=== PATIENT | female | born 1930 | race Caucasian/White ===

== ENCOUNTER 2018-02-11 12:03 | Inpatient (IN) | payer MEDICARE, OTHER, MEDICAID ==
[2018-02-11 12:57] LABS: ADD MAN DIFF? NO
[2018-02-11 13:01] LABS: WHITE BLOOD COUNT 10.4 10^3/ul (4.8-10.8)
[2018-02-11 13:01] LABS: BASOPHIL # 0.1 10^3/ul (0.0-0.1); BASOPHILS % 0.6 % (0.0-2.0); EOSINOPHILS % 0.4 % (0.0-7.0); HEMATOCRIT 34.4 % (37.0-47.0); HEMOGLOBIN 10.9 g/dl (12.0-16.0); LYMPHOCYTES # 3.7 10^3/ul (0.8-2.9); MEAN CORPUSCULAR HEMOGLOBIN 28.8 pg (29.0-33.0); MEAN CORPUSCULAR HGB CONC 31.7 g/dl (32.0-37.0); MEAN CORPUSCULAR VOLUME 90.8 fl (82.0-101.0); MEAN PLATELET VOLUME 10.4 fl (7.4-10.4); MONOCYTE # 0.7 10^3/ul (0.3-0.9); NEUTROPHIL # 5.7 10^3/ul (1.6-7.5); NEUTROPHILS % 55.4 % (39.0-77.0); PLATELET COUNT 333 10^3/UL (140-415); RED BLOOD COUNT 3.79 10^6/ul (4.20-5.40); RED CELL DISTRIBUTION WIDTH 15.7 % (11.5-14.5)
[2018-02-11 13:14] LABS: INR 1.25; PARTIAL THROMBOPLASTIN TIME 30.3 Sec (25.0-35.0); PROTIME 15.9 Sec (11.9-14.9); PT RATIO 1.2
[2018-02-11] MEDS: SOD CHLORIDE 0.9% 1,000 ML IV ×2 (14:00→19:07)
[2018-02-11] MEDS: LIDOCAINE 1% (MPF) 5 ML VIAL SC (14:05)
[2018-02-11 14:12] LABS: ALANINE AMINOTRANSFERASE 26 IU/L (13-69); ALBUMIN 2.5 g/dl (3.3-4.9); ALBUMIN/GLOBULIN RATIO 0.83; ALKALINE PHOSPHATASE 94 IU/L (42-121); ANION GAP 16 (8-16); ASPARTATE AMINO TRANSFERASE 28 IU/L (15-46); BILIRUBIN,INDIRECT 0.4 mg/dl (0-1.1); BILIRUBIN,TOTAL 0.4 mg/dl (0.2-1.3); BLOOD UREA NITROGEN 31 mg/dl (7-20); CARBON DIOXIDE 19 mmol/L (21-31); CHLORIDE 109 mmol/L (97-110); CREATININE 1.24 mg/dl (0.44-1.00); GLUCOSE 78 mg/dl (70-220); POTASSIUM 3.7 mmol/L (3.5-5.1); SODIUM 140 mmol/L (135-144); TOTAL PROTEIN 5.5 g/dl (6.1-8.1)
[2018-02-11 14:17] LABS: LACTIC ACID 1.3 mmol/L (0.5-2.0); PHOSPHORUS 5.6 mg/dl (2.5-4.9)
[2018-02-11 14:17] LABS: MAGNESIUM 2.1 mg/dl (1.7-2.5)
[2018-02-11 14:23] LABS: TROPONIN-I 0.018 ng/ml (0.00-0.12)
[2018-02-11 14:49] LABS: AADO2 Arterial 220.5 mmHg (7.0-24.0); Allen Test ACCEPTAB; Arterial Base Excess -2.7 mmol/L (-3.0-3); Arterial Blood Gas Oxygen Sat 96.7 mmHG (95.0-100.0); Arterial COHb 0.5 % (0.0-3.0); Arterial HCO3 21.6 mmol/L (22.0-26.0); Arterial MetHb 0.2 % (0.0-1.5); Arterial Total Hemglobin 11.4 g/dl (12.0-18.0); Arterial pCO2 35.7 mmhg (35-45); MODE HFNC; Site Left Radial
[2018-02-11] MEDS: HEPARIN 1000 UNITS/ML 10 ML INJ IV (15:30)
[2018-02-11 15:31] LABS: ADD UMIC NO; UR ASCORBIC ACID NEGATIVE (NEGATIVE); UR BILIRUBIN (Dip) NEGATIVE (NEGATIVE); UR BLOOD (Dip) NEGATIVE (NEGATIVE); UR CLARITY CLEAR (CLEAR); UR COLOR AMBER (YELLOW); UR GLUCOSE (Dip) NEGATIVE (NEGATIVE); UR KETONES (Dip) NEGATIVE (NEGATIVE); UR LEUKOCYTE ESTERASE (Dip) NEGATIVE Leu/ul (NEGATIVE); UR NITRITE (Dip) NEGATIVE (NEGATIVE); UR SPECIFIC GRAVITY (Dip) 1.019 (1.003-1.030); UR TOTAL PROTEIN (Dip) NEGATIVE (NEGATIVE); UR UROBILINOGEN (Dip) 2+ mg/dL (NEGATIVE)
[2018-02-11] MEDS: HEPARIN 25000 UNITS/D5W 250 ML (VPH) IV (15:40)
[2018-02-11] MEDS ORDERED: HYDROCODONE/APAP (5/325) TAB PO (18:00)
[2018-02-11] MEDS ORDERED: ZOLPIDEM 5 MG TAB PO (18:00)
[2018-02-11] MEDS ORDERED: ALPRAZOLAM 0.25 MG TAB PO (18:00)
[2018-02-11] MEDS ORDERED: morphine 2 MG INJ IV (18:00)
[2018-02-11] MEDS ORDERED: NACL 0.9% 3 ML SYG IV (18:00)
[2018-02-11] MEDS ORDERED: NAPROXEN 500 MG TAB PO (18:00)
[2018-02-11] MEDS ORDERED: DOCUSATE SODIUM 100 MG CAP PO (18:00)
[2018-02-11] MEDS: SOD CHLORIDE 0.9% 500 ML IV (18:00)
[2018-02-11] MEDS: NORepinephrine 8MG/250 ML (PMX 250 ML IV (19:16)
[2018-02-11 19:49] LABS: LACTIC ACID 0.9 mmol/L (0.5-2.0)
[2018-02-11] MEDS: ATORVASTATIN 40 MG TAB PO (21:48)
[2018-02-11] MEDS: MONTELUKAST 10 MG TAB PO (21:48)
[2018-02-11] MEDS: BENZTROPINE 1 MG TAB PO (21:48)
[2018-02-11 22:57] LABS: LACTIC ACID 1.2 mmol/L (0.5-2.0)
[2018-02-12 00:40] LABS: PARTIAL THROMBOPLASTIN TIME > 180.0 Sec (25.0-35.0)
[2018-02-12 04:48] LABS: PARTIAL THROMBOPLASTIN TIME 88.1 Sec (25.0-35.0)
[2018-02-12 05:36] LABS: ADD MAN DIFF? NO
[2018-02-12 05:39] LABS: BASOPHIL # 0.1 10^3/ul (0.0-0.1); EOSINOPHILS # 0.1 10^3/ul (0.0-0.5); EOSINOPHILS % 0.6 % (0.0-7.0); HEMATOCRIT 33.6 % (37.0-47.0); HEMOGLOBIN 10.3 g/dl (12.0-16.0); LYMPHOCYTES # 3.5 10^3/ul (0.8-2.9); LYMPHOCYTES % 34.1 % (15.0-51.0); MEAN CORPUSCULAR HEMOGLOBIN 28.8 pg (29.0-33.0); MEAN CORPUSCULAR HGB CONC 30.7 g/dl (32.0-37.0); MEAN CORPUSCULAR VOLUME 93.9 fl (82.0-101.0); MEAN PLATELET VOLUME 10.1 fl (7.4-10.4); MONOCYTE # 0.8 10^3/ul (0.3-0.9); MONOCYTES % 8.2 % (0.0-11.0); NEUTROPHIL # 5.7 10^3/ul (1.6-7.5); NEUTROPHILS % 55.3 % (39.0-77.0); PLATELET COUNT 362 10^3/UL (140-415); RED BLOOD COUNT 3.58 10^6/ul (4.20-5.40); RED CELL DISTRIBUTION WIDTH 15.5 % (11.5-14.5)
[2018-02-12 05:39] LABS: WHITE BLOOD COUNT 10.2 10^3/ul (4.8-10.8)
[2018-02-12 06:04] LABS: ANION GAP 14 (8-16); BLOOD UREA NITROGEN 31 mg/dl (7-20); CALCIUM 7.5 mg/dl (8.4-10.2); CARBON DIOXIDE 20 mmol/L (21-31); CHLORIDE 111 mmol/L (97-110); CHOL/HDL RATIO 5.5 RATIO; CHOLESTEROL 116 mg/dl (100-200); CREATININE 1.19 mg/dl (0.44-1.00); GLUCOSE 143 mg/dl (70-220); HDL CHOLESTEROL 21 mg/dl (33-92); LDL CHOLESTEROL,CALCULATED 70 mg/dl; MAGNESIUM 2.1 mg/dl (1.7-2.5); PHOSPHORUS 5.9 mg/dl (2.5-4.9); POTASSIUM 3.6 mmol/L (3.5-5.1); SODIUM 141 mmol/L (135-144); TRIGLYCERIDES 126 mg/dl (0-149)
[2018-02-12 06:13] LABS: B-TYPE NATRIURETIC PEPTIDE 18900 PG/ML (0-450)
[2018-02-12 06:17] LABS: PARTIAL THROMBOPLASTIN TIME > 180.0 Sec (25.0-35.0)
[2018-02-12 06:57] LABS: FREE THYROXINE INDEX (Calc) 3.51 ug/ml (0.65-3.89); T3 UPTAKE 43.3 % (23.5-40.5); T4 (THYROXINE) 8.1 ug/dl (5.5-11.0)
[2018-02-12 07:58] LABS: IRON 32 ug/dl (35-150)
[2018-02-12 08:07] LABS: % IRON SATURATION 15 % SAT (22-52); TOTAL IRON BINDING CAPACITY 217 ug/dl (241-421)
[2018-02-12 08:08] LABS: PARTIAL THROMBOPLASTIN TIME 38.2 Sec (25.0-35.0)
[2018-02-12 08:11] LABS: FOLATE 6.2 ng/ml (2.8-20.0)
[2018-02-12] MEDS: PANTOPRAZOLE (EC) 40 MG TAB PO (08:39)
[2018-02-12] MEDS: LEVOTHYROXINE 112 MCG TAB PO (08:39)
[2018-02-12] MEDS: ARIPIPRAZOLE 2 MG TAB PO (08:39)
[2018-02-12] MEDS: BENZTROPINE 1 MG TAB PO ×2 (08:40→23:30)
[2018-02-12] MEDS: POTASSIUM CHLORIDE (SR) 20 MEQ TAB PO (08:40)
[2018-02-12] MEDS: ESCITALOPRAM 10 MG TAB PO (08:41)
[2018-02-12] MEDS: ALLOPURINOL 100 MG TAB PO (09:16)
[2018-02-12] MEDS: ANASTROZOLE 1 MG TAB PO (09:50)
[2018-02-12 11:50] LABS: PARTIAL THROMBOPLASTIN TIME 42.8 Sec (25.0-35.0)
[2018-02-12] MEDS: HEPARIN 1000 UNITS/ML 10 ML INJ IV (12:41)
[2018-02-12] MEDS: SOD CHLORIDE 0.9% 1,000 ML IV (13:43)
[2018-02-12 20:33] LABS: PARTIAL THROMBOPLASTIN TIME > 180.0 Sec (25.0-35.0)
[2018-02-12] MEDS: IOHEXOL 100 ML (20:52)
[2018-02-12] MEDS: SOD CHLORIDE 0.9% 100 ML (20:52)
[2018-02-12] MEDS ORDERED: HEPARIN 1000 UNITS/ML 10 ML INJ IV ×4 (21:30→22:00)
[2018-02-12] MEDS: ALBUTEROL/IPRATROPIUM (NEB) 3 ML AMP HHN (21:31)
[2018-02-12] MEDS: MONTELUKAST 10 MG TAB PO (22:28)
[2018-02-12] MEDS: ATORVASTATIN 40 MG TAB PO (22:28)
[2018-02-12 23:45] LABS: PARTIAL THROMBOPLASTIN TIME 97.1 Sec (25.0-35.0)
[2018-02-12] MEDS: HEPARIN 25000 UNITS/250 ML 250 ML IV (23:53)
[2018-02-12 23:59] LABS: CREATININE,URINE RANDOM 94.53 mg/dl (20-320)
[2018-02-13 00:06] LABS: SODIUM,URINE RANDOM < 5 mmol/L (30-90)
[2018-02-13 00:27] LABS: ADD UMIC YES; UR ASCORBIC ACID NEGATIVE (NEGATIVE); UR BACTERIA FEW /HPF (NONE SEEN); UR BILIRUBIN (Dip) NEGATIVE (NEGATIVE); UR BLOOD (Dip) 2+ mg/dL (NEGATIVE); UR CLARITY SLIGHTLY CLOUDY (CLEAR); UR COLOR YELLOW (YELLOW); UR GLUCOSE (Dip) NEGATIVE (NEGATIVE); UR KETONES (Dip) NEGATIVE (NEGATIVE); UR LEUKOCYTE ESTERASE (Dip) TRACE Leu/ul (NEGATIVE); UR MUCUS FEW /HPF (NONE SEEN); UR NITRITE (Dip) NEGATIVE (NEGATIVE); UR RBC > 182 /HPF (0-5); UR SPECIFIC GRAVITY (Dip) > 1.060 (1.003-1.030); UR SQUAMOUS EPITHELIAL CELL FEW /HPF (FEW); UR TOTAL PROTEIN (Dip) 1+ mg/dl (NEGATIVE); UR UROBILINOGEN (Dip) 1+ mg/dL (NEGATIVE); UR WBC 13 /HPF (0-5)
[2018-02-13] MEDS: LEVOTHYROXINE 112 MCG TAB PO (06:25)
[2018-02-13] MEDS: PANTOPRAZOLE (EC) 40 MG TAB PO (06:25)
[2018-02-13 07:14] LABS: ADD MAN DIFF? NO
[2018-02-13 07:18] LABS: BASOPHILS % 0.3 % (0.0-2.0); EOSINOPHILS # 0.1 10^3/ul (0.0-0.5); EOSINOPHILS % 0.8 % (0.0-7.0); HEMATOCRIT 31.2 % (37.0-47.0); HEMOGLOBIN 9.7 g/dl (12.0-16.0); LYMPHOCYTES # 2.2 10^3/ul (0.8-2.9); LYMPHOCYTES % 28.5 % (15.0-51.0); MEAN CORPUSCULAR HEMOGLOBIN 28.6 pg (29.0-33.0); MEAN CORPUSCULAR HGB CONC 31.1 g/dl (32.0-37.0); MEAN PLATELET VOLUME 9.7 fl (7.4-10.4); MONOCYTE # 0.6 10^3/ul (0.3-0.9); NEUTROPHIL # 4.7 10^3/ul (1.6-7.5); NEUTROPHILS % 62.1 % (39.0-77.0); PLATELET COUNT 262 10^3/UL (140-415); RED BLOOD COUNT 3.39 10^6/ul (4.20-5.40); RED CELL DISTRIBUTION WIDTH 15.5 % (11.5-14.5)
[2018-02-13 07:18] LABS: WHITE BLOOD COUNT 7.5 10^3/ul (4.8-10.8)
[2018-02-13 07:45] LABS: PARTIAL THROMBOPLASTIN TIME 97.1 Sec (25.0-35.0)
[2018-02-13 07:50] LABS: ANION GAP 13 (8-16); BLOOD UREA NITROGEN 28 mg/dl (7-20); CALCIUM 7.3 mg/dl (8.4-10.2); CARBON DIOXIDE 19 mmol/L (21-31); CHLORIDE 112 mmol/L (97-110); CREATININE 1.04 mg/dl (0.44-1.00); GLUCOSE 98 mg/dl (70-220); MAGNESIUM 2.2 mg/dl (1.7-2.5); POTASSIUM 3.7 mmol/L (3.5-5.1); SODIUM 140 mmol/L (135-144)
[2018-02-13 07:51] LABS: CHOLESTEROL 112 mg/dl (100-200)
[2018-02-13 07:51] LABS: HDL CHOLESTEROL 22 mg/dl (33-92); LDL CHOLESTEROL,CALCULATED 65 mg/dl; TRIGLYCERIDES 123 mg/dl (0-149)
[2018-02-13] MEDS: ALLOPURINOL 100 MG TAB PO (08:25)
[2018-02-13] MEDS: ESCITALOPRAM 10 MG TAB PO (08:25)
[2018-02-13] MEDS: BENZTROPINE 1 MG TAB PO ×2 (08:25→21:16)
[2018-02-13] MEDS: ARIPIPRAZOLE 2 MG TAB PO (08:25)
[2018-02-13] MEDS: SOD CHLORIDE 0.9% 1,000 ML IV (08:25)
[2018-02-13] MEDS: POTASSIUM CHLORIDE (SR) 20 MEQ TAB PO (08:25)
[2018-02-13] MEDS: ANASTROZOLE 1 MG TAB PO (08:27)
[2018-02-13 16:25] LABS: PARTIAL THROMBOPLASTIN TIME 78.3 Sec (25.0-35.0)
[2018-02-13 18:34] LABS: TROPONIN-I < 0.012 ng/ml (0.00-0.12)
[2018-02-13] MEDS: MONTELUKAST 10 MG TAB PO (21:16)
[2018-02-13] MEDS: ATORVASTATIN 40 MG TAB PO (21:16)
[2018-02-13] MEDS: HEPARIN 25000 UNITS/250 ML 250 ML IV (23:35)
[2018-02-14 02:18] LABS: TROPONIN-I < 0.012 ng/ml (0.00-0.12)
[2018-02-14] MEDS: SOD CHLORIDE 0.9% 1,000 ML IV (03:28)
[2018-02-14] MEDS: PANTOPRAZOLE (EC) 40 MG TAB PO (06:53)
[2018-02-14] MEDS: LEVOTHYROXINE 112 MCG TAB PO (06:53)
[2018-02-14] MEDS: BENZTROPINE 1 MG TAB PO ×3 (09:00→20:36)
[2018-02-14] MEDS: ANASTROZOLE 1 MG TAB PO ×2 (09:00→17:08)
[2018-02-14] MEDS: ALLOPURINOL 100 MG TAB PO ×2 (09:00→17:07)
[2018-02-14] MEDS: POTASSIUM CHLORIDE (SR) 20 MEQ TAB PO ×2 (09:00→17:09)
[2018-02-14] MEDS: ARIPIPRAZOLE 2 MG TAB PO ×2 (09:00→17:06)
[2018-02-14] MEDS: ESCITALOPRAM 10 MG TAB PO ×2 (09:00)
[2018-02-14 09:19] LABS: ADD MAN DIFF? NO
[2018-02-14 09:22] LABS: BASOPHILS % 0.3 % (0.0-2.0); EOSINOPHILS # 0.1 10^3/ul (0.0-0.5); EOSINOPHILS % 1.2 % (0.0-7.0); HEMATOCRIT 31.8 % (37.0-47.0); HEMOGLOBIN 9.8 g/dl (12.0-16.0); LYMPHOCYTES % 30.8 % (15.0-51.0); MEAN CORPUSCULAR HEMOGLOBIN 28.7 pg (29.0-33.0); MEAN CORPUSCULAR HGB CONC 30.8 g/dl (32.0-37.0); MEAN PLATELET VOLUME 10.2 fl (7.4-10.4); MONOCYTE # 0.5 10^3/ul (0.3-0.9); MONOCYTES % 8.3 % (0.0-11.0); NEUTROPHIL # 3.9 10^3/ul (1.6-7.5); NEUTROPHILS % 59.1 % (39.0-77.0); PLATELET COUNT 288 10^3/UL (140-415); RED BLOOD COUNT 3.42 10^6/ul (4.20-5.40); RED CELL DISTRIBUTION WIDTH 15.7 % (11.5-14.5)
[2018-02-14 09:22] LABS: WHITE BLOOD COUNT 6.5 10^3/ul (4.8-10.8)
[2018-02-14 09:46] LABS: ANION GAP 10 (8-16); BLOOD UREA NITROGEN 26 mg/dl (7-20); CALCIUM 7.3 mg/dl (8.4-10.2); CARBON DIOXIDE 20 mmol/L (21-31); CHLORIDE 114 mmol/L (97-110); CREATININE 0.95 mg/dl (0.44-1.00); GLUCOSE 91 mg/dl (70-220); MAGNESIUM 2.2 mg/dl (1.7-2.5); PHOSPHORUS 3.1 mg/dl (2.5-4.9); POTASSIUM 3.7 mmol/L (3.5-5.1); SODIUM 140 mmol/L (135-144)
[2018-02-14 09:51] LABS: PARTIAL THROMBOPLASTIN TIME 91.1 Sec (25.0-35.0)
[2018-02-14 12:53] LABS: CREATININE, RANDOM URINE 103 mg/dL (20-320); MICROALBUMIN 5.2 mg/dL; MICROALBUMIN/CREATININE RATIO 50 (<30)
[2018-02-14] MEDS: ATORVASTATIN 40 MG TAB PO (20:36)
[2018-02-14] MEDS: MONTELUKAST 10 MG TAB PO (20:36)
[2018-02-15] MEDS: HEPARIN 25000 UNITS/250 ML 250 ML IV ×2 (00:24→18:56)
[2018-02-15] MEDS: LEVOTHYROXINE 112 MCG TAB PO (06:32)
[2018-02-15] MEDS: PANTOPRAZOLE (EC) 40 MG TAB PO (06:32)
[2018-02-15 06:48] LABS: ADD MAN DIFF? NO
[2018-02-15 07:04] LABS: PARTIAL THROMBOPLASTIN TIME 36.9 Sec (25.0-35.0)
[2018-02-15 07:20] LABS: ANION GAP 9 (8-16); BLOOD UREA NITROGEN 24 mg/dl (7-20); CARBON DIOXIDE 20 mmol/L (21-31); CHLORIDE 115 mmol/L (97-110); CREATININE 0.86 mg/dl (0.44-1.00); GLUCOSE 105 mg/dl (70-220); SODIUM 140 mmol/L (135-144)
[2018-02-15 07:21] LABS: CALCIUM 7.6 mg/dl (8.4-10.2)
[2018-02-15] MEDS: ALTEPLASE (CATHFLO) 2 MG INJ CATHETER (08:38)
[2018-02-15] MEDS: POTASSIUM CHLORIDE (SR) 20 MEQ TAB PO (08:39)
[2018-02-15] MEDS: ESCITALOPRAM 10 MG TAB PO (08:39)
[2018-02-15] MEDS: ARIPIPRAZOLE 2 MG TAB PO (08:40)
[2018-02-15] MEDS: ALLOPURINOL 100 MG TAB PO (08:41)
[2018-02-15] MEDS: BENZTROPINE 1 MG TAB PO ×2 (08:41→20:30)
[2018-02-15] MEDS: ANASTROZOLE 1 MG TAB PO (08:48)
[2018-02-15 09:24] LABS: BASOPHILS % 0.4 % (0.0-2.0); EOSINOPHILS # 0.1 10^3/ul (0.0-0.5); EOSINOPHILS % 1.2 % (0.0-7.0); HEMATOCRIT 32.6 % (37.0-47.0); LYMPHOCYTES # 1.9 10^3/ul (0.8-2.9); MEAN CORPUSCULAR HEMOGLOBIN 28.2 pg (29.0-33.0); MEAN CORPUSCULAR HGB CONC 30.7 g/dl (32.0-37.0); MEAN CORPUSCULAR VOLUME 92.1 fl (82.0-101.0); MEAN PLATELET VOLUME 10.9 fl (7.4-10.4); MONOCYTE # 0.5 10^3/ul (0.3-0.9); MONOCYTES % 8.5 % (0.0-11.0); NEUTROPHIL # 3.2 10^3/ul (1.6-7.5); NEUTROPHILS % 55.5 % (39.0-77.0); PLATELET COUNT 223 10^3/UL (140-415); RED BLOOD COUNT 3.54 10^6/ul (4.20-5.40); RED CELL DISTRIBUTION WIDTH 15.4 % (11.5-14.5)
[2018-02-15 09:24] LABS: WHITE BLOOD COUNT 5.7 10^3/ul (4.8-10.8)
[2018-02-15 11:03] LABS: PARTIAL THROMBOPLASTIN TIME 73.6 Sec (25.0-35.0)
[2018-02-15] MEDS: MONTELUKAST 10 MG TAB PO (20:30)
[2018-02-15] MEDS: ATORVASTATIN 40 MG TAB PO (20:30)
[2018-02-16] MEDS: PANTOPRAZOLE (EC) 40 MG TAB PO (06:42)
[2018-02-16] MEDS: LEVOTHYROXINE 112 MCG TAB PO (06:42)
[2018-02-16 07:08] LABS: PARTIAL THROMBOPLASTIN TIME 97.2 Sec (25.0-35.0)
[2018-02-16 07:13] LABS: ANION GAP 10 (8-16); BLOOD UREA NITROGEN 23 mg/dl (7-20); CALCIUM 8.2 mg/dl (8.4-10.2); CARBON DIOXIDE 22 mmol/L (21-31); CHLORIDE 114 mmol/L (97-110); CREATININE 0.84 mg/dl (0.44-1.00); GLUCOSE 125 mg/dl (70-220); POTASSIUM 3.6 mmol/L (3.5-5.1); SODIUM 142 mmol/L (135-144)
[2018-02-16] MEDS: ALLOPURINOL 100 MG TAB PO (08:26)
[2018-02-16] MEDS: POTASSIUM CHLORIDE (SR) 20 MEQ TAB PO (08:26)
[2018-02-16] MEDS: ARIPIPRAZOLE 2 MG TAB PO (08:26)
[2018-02-16] MEDS: ESCITALOPRAM 10 MG TAB PO (08:27)
[2018-02-16] MEDS: BENZTROPINE 1 MG TAB PO ×2 (08:27→21:44)
[2018-02-16] MEDS: ANASTROZOLE 1 MG TAB PO (08:47)
[2018-02-16] MEDS: ACETAMINOPHEN 325 MG TAB PO (09:44)
[2018-02-16] MEDS: ONDANSETRON 4 MG INJ IV (10:02)
[2018-02-16] MEDS: HEPARIN 25000 UNITS/250 ML 250 ML IV (11:02)
[2018-02-16] MEDS: FUROSEMIDE 40 MG INJ IV (13:07)
[2018-02-16] MEDS: ATORVASTATIN 40 MG TAB PO (21:44)
[2018-02-16] MEDS: APIXABAN 5 MG TABLET PO (21:44)
[2018-02-16] MEDS: MONTELUKAST 10 MG TAB PO (21:44)
[2018-02-17 06:25] LABS: ADD MAN DIFF? NO
[2018-02-17 06:27] LABS: BASOPHILS % 0.3 % (0.0-2.0); EOSINOPHILS % 0.3 % (0.0-7.0); HEMATOCRIT 33.4 % (37.0-47.0); HEMOGLOBIN 10.4 g/dl (12.0-16.0); LYMPHOCYTES # 1.9 10^3/ul (0.8-2.9); LYMPHOCYTES % 27.2 % (15.0-51.0); MEAN CORPUSCULAR HEMOGLOBIN 28.7 pg (29.0-33.0); MEAN CORPUSCULAR HGB CONC 31.1 g/dl (32.0-37.0); MONOCYTE # 0.5 10^3/ul (0.3-0.9); MONOCYTES % 7.1 % (0.0-11.0); NEUTROPHIL # 4.5 10^3/ul (1.6-7.5); NEUTROPHILS % 64.7 % (39.0-77.0); PLATELET COUNT 264 10^3/UL (140-415); RED BLOOD COUNT 3.63 10^6/ul (4.20-5.40); RED CELL DISTRIBUTION WIDTH 15.3 % (11.5-14.5)
[2018-02-17 06:27] LABS: WHITE BLOOD COUNT 6.9 10^3/ul (4.8-10.8)
[2018-02-17] MEDS: LEVOTHYROXINE 112 MCG TAB PO (06:29)
[2018-02-17] MEDS: PANTOPRAZOLE (EC) 40 MG TAB PO (06:30)
[2018-02-17 06:48] LABS: PARTIAL THROMBOPLASTIN TIME 26.6 Sec (25.0-35.0)
[2018-02-17 07:03] LABS: ANION GAP 7 (8-16); BLOOD UREA NITROGEN 26 mg/dl (7-20); CALCIUM 8.6 mg/dl (8.4-10.2); CARBON DIOXIDE 25 mmol/L (21-31); CHLORIDE 111 mmol/L (97-110); CREATININE 0.91 mg/dl (0.44-1.00); GLUCOSE 126 mg/dl (70-220); MAGNESIUM 2.1 mg/dl (1.7-2.5); PHOSPHORUS 3.4 mg/dl (2.5-4.9); POTASSIUM 3.4 mmol/L (3.5-5.1); SODIUM 140 mmol/L (135-144)
[2018-02-17] MEDS: APIXABAN 5 MG TABLET PO ×2 (08:23→21:05)
[2018-02-17] MEDS: ALLOPURINOL 100 MG TAB PO (08:23)
[2018-02-17] MEDS: BENZTROPINE 1 MG TAB PO ×2 (08:24→23:00)
[2018-02-17] MEDS: FUROSEMIDE 40 MG INJ IV (08:24)
[2018-02-17] MEDS: POTASSIUM CHLORIDE (SR) 20 MEQ TAB PO ×2 (08:25→10:32)
[2018-02-17] MEDS: ESCITALOPRAM 10 MG TAB PO (08:26)
[2018-02-17] MEDS: ANASTROZOLE 1 MG TAB PO (08:26)
[2018-02-17] MEDS: ARIPIPRAZOLE 2 MG TAB PO (08:27)
[2018-02-17] MEDS: MONTELUKAST 10 MG TAB PO (21:05)
[2018-02-17] MEDS: ATORVASTATIN 40 MG TAB PO (21:05)
[2018-02-18] MEDS: LEVOTHYROXINE 112 MCG TAB PO (06:15)
[2018-02-18] MEDS: PANTOPRAZOLE (EC) 40 MG TAB PO (06:25)
[2018-02-18 07:06] LABS: ADD MAN DIFF? NO
[2018-02-18 07:10] LABS: WHITE BLOOD COUNT 5.9 10^3/ul (4.8-10.8)
[2018-02-18 07:10] LABS: BASOPHILS % 0.2 % (0.0-2.0); EOSINOPHILS # 0.1 10^3/ul (0.0-0.5); EOSINOPHILS % 0.8 % (0.0-7.0); HEMOGLOBIN 10.4 g/dl (12.0-16.0); LYMPHOCYTES # 1.7 10^3/ul (0.8-2.9); LYMPHOCYTES % 29.4 % (15.0-51.0); MEAN CORPUSCULAR HEMOGLOBIN 28.9 pg (29.0-33.0); MEAN CORPUSCULAR HGB CONC 31.5 g/dl (32.0-37.0); MEAN CORPUSCULAR VOLUME 91.7 fl (82.0-101.0); MEAN PLATELET VOLUME 10.2 fl (7.4-10.4); MONOCYTE # 0.4 10^3/ul (0.3-0.9); MONOCYTES % 7.1 % (0.0-11.0); NEUTROPHIL # 3.7 10^3/ul (1.6-7.5); NEUTROPHILS % 62.2 % (39.0-77.0); PLATELET COUNT 287 10^3/UL (140-415); RED CELL DISTRIBUTION WIDTH 15.2 % (11.5-14.5)
[2018-02-18 07:28] LABS: ANION GAP 11 (8-16); BLOOD UREA NITROGEN 26 mg/dl (7-20); CALCIUM 8.3 mg/dl (8.4-10.2); CARBON DIOXIDE 24 mmol/L (21-31); CHLORIDE 109 mmol/L (97-110); CREATININE 0.84 mg/dl (0.44-1.00); GLUCOSE 111 mg/dl (70-220); PHOSPHORUS 3.5 mg/dl (2.5-4.9); POTASSIUM 3.3 mmol/L (3.5-5.1); SODIUM 141 mmol/L (135-144)
[2018-02-18] MEDS: POTASSIUM CHLORIDE (SR) 20 MEQ TAB PO (08:23)
[2018-02-18] MEDS: BENZTROPINE 1 MG TAB PO ×2 (08:23→21:00)
[2018-02-18] MEDS: ESCITALOPRAM 10 MG TAB PO (08:24)
[2018-02-18] MEDS: ALLOPURINOL 100 MG TAB PO (08:24)
[2018-02-18] MEDS: FUROSEMIDE 40 MG INJ IV ×2 (08:25→17:55)
[2018-02-18] MEDS: ARIPIPRAZOLE 2 MG TAB PO (08:25)
[2018-02-18] MEDS: APIXABAN 5 MG TABLET PO ×2 (08:25→21:34)
[2018-02-18] MEDS: POTASSIUM CHLORIDE (SR) 10 MEQ TAB PO (08:33)
[2018-02-18] MEDS: ANASTROZOLE 1 MG TAB PO (08:52)
[2018-02-18] MEDS: AL HYDROX/MG HYDROX/SIMETH 30 ML CUP PO (14:57)
[2018-02-18] MEDS ORDERED: morphine LIQ (10 MG/5 ML) CUP PO (16:00)
[2018-02-18] MEDS: MONTELUKAST 10 MG TAB PO (21:34)
[2018-02-18] MEDS: ATORVASTATIN 40 MG TAB PO (21:34)
[2018-02-19] MEDS: FUROSEMIDE 40 MG INJ IV (06:54)
[2018-02-19] MEDS: LEVOTHYROXINE 112 MCG TAB PO (06:54)
[2018-02-19] MEDS: PANTOPRAZOLE (EC) 40 MG TAB PO (06:54)
[2018-02-19] MEDS: BENZTROPINE 1 MG TAB PO (08:17)
[2018-02-19] MEDS: POTASSIUM CHLORIDE (SR) 20 MEQ TAB PO (08:18)
[2018-02-19] MEDS: ARIPIPRAZOLE 2 MG TAB PO (08:18)
[2018-02-19] MEDS: ALLOPURINOL 100 MG TAB PO (08:20)
[2018-02-19] MEDS: APIXABAN 5 MG TABLET PO (08:20)
[2018-02-19] MEDS: ESCITALOPRAM 10 MG TAB PO (08:20)
[2018-02-19 08:30] LABS: ANION GAP 12 (8-16); BLOOD UREA NITROGEN 31 mg/dl (7-20); CALCIUM 8.7 mg/dl (8.4-10.2); CARBON DIOXIDE 28 mmol/L (21-31); CHLORIDE 106 mmol/L (97-110); CREATININE 0.86 mg/dl (0.44-1.00); GLUCOSE 113 mg/dl (70-220); MAGNESIUM 1.9 mg/dl (1.7-2.5); PHOSPHORUS 3.2 mg/dl (2.5-4.9); POTASSIUM 3.6 mmol/L (3.5-5.1); SODIUM 142 mmol/L (135-144)
[2018-02-19] MEDS: ANASTROZOLE 1 MG TAB PO (08:37)
[2018-02-19] MEDS: ALBUTEROL/IPRATROPIUM (NEB) 3 ML AMP HHN (12:00)
[2018-02-19] MEDS ORDERED: SOD CHLORIDE 0.9% 500 ML IV (12:00)
[2018-02-19] MEDS ORDERED: VANCOMYCIN IV PER PHARMACY XX (12:00)
[2018-02-19] MEDS ORDERED: LIDOCAINE 1% (MDV) 20 ML INJ (13:14)
[2018-02-19] MEDS ORDERED: MIDAZOLAM 1 MG/ML 2 ML INJ (13:14)
[2018-02-19] MEDS ORDERED: FENTAnyl 50 MCG/ML VIAL (13:14)
[2018-02-19] MEDS ORDERED: IODIXANOL LOCM 100 ML BTL (13:14)
[2018-02-19] MEDS ORDERED: VERAPAMIL 5 MG INJ (13:14)
[2018-02-19] MEDS ORDERED: NITROGLYCERIN (IC) 100 MCG/ML INJ (13:14)
[2018-02-19] MEDS ORDERED: PHENYLephrine 10 MG INJ (13:31)
[2018-02-19] MEDS ORDERED: SUCCINYLCHOLINE CHLORIDE 100 MG/5 ML SYG IV (13:41)
[2018-02-19] MEDS ORDERED: SOD CHLORIDE 0.9% 1,000 ML IV (13:50)
[2018-02-19] MEDS ORDERED: PIPER-TAZO 3.375 GM IV (PMX) 100 ML IVPB (14:00)
[2018-02-19] MEDS ORDERED: VANCOMYCIN 2 GM in SOD CHLORIDE 0.9% 500 ML IVPB (14:00)
[2018-02-19] MEDS ORDERED: NORepinephrine 8MG/250 ML (PMX 250 ML (14:07)
[2018-02-19] MEDS ORDERED: ETOMIDATE 20 MG INJ (14:07)
[2018-02-20] MEDS ORDERED: VANCOMYCIN 1.5 GM in SOD CHLORIDE 0.9% 250 ML IVPB (14:00)
[2018-02-20] MEDS ORDERED: VANCOMYCIN 1.25 GM in SOD CHLORIDE 0.9% 250 ML IVPB (16:00)
== END 2018-02-19 14:31 | disposition expired | DRG 166 ==
LOC: ICU 02-19 12:20 → TEL 18:04 → ICU 02-19 12:36 → E/R 12:03
PROVIDERS: Internal Medicine
PROC: 06H03DZ Insertion of Intraluminal Device into Inferior Vena Cava, Percutaneous Approach (ICD-10-PCS; principal; 2018-02-14 13:40)
PROC: 4A023N7 Measurement of Cardiac Sampling and Pressure, Left Heart, Percutaneous Approach (ICD-10-PCS; 2018-02-14 13:40)
PROC: B211YZZ Fluoroscopy of Multiple Coronary Arteries using Other Contrast (ICD-10-PCS; 2018-02-14 13:40)
PROC: 0BH17EZ Insertion of Endotracheal Airway into Trachea, Via Natural or Artificial Opening (ICD-10-PCS; 2018-02-14 13:40)
PROC: 5A1935Z Respiratory Ventilation, Less than 24 Consecutive Hours (ICD-10-PCS; 2018-02-14 13:40)
PROC: 5A12012 Performance of Cardiac Output, Single, Manual (ICD-10-PCS; 2018-02-14 13:40)
PROC: 02HV33Z Insertion of Infusion Device into Superior Vena Cava, Percutaneous Approach (ICD-10-PCS; 2018-02-14 13:40)
DX: I26.99 Other pulmonary embolism without acute cor pulmonale (principal); I50.33 Acute on chronic diastolic (congestive) heart failure; J96.20 Acute and chronic respiratory failure, unspecified whether with hypoxia or hypercapnia; I21.9 Acute myocardial infarction, unspecified; I13.0 Hypertensive heart and chronic kidney disease with heart failure and stage 1 through stage 4 chronic kidney disease, or unspecified chronic kidney disease; N17.9 Acute kidney failure, unspecified; E66.2 Morbid (severe) obesity with alveolar hypoventilation; Z68.42 Body mass index [BMI] 45.0-49.9, adult; E87.2 Acidosis; I82.432 Acute embolism and thrombosis of left popliteal vein; R57.1 Hypovolemic shock; N18.9 Chronic kidney disease, unspecified; D63.1 Anemia in chronic kidney disease; E86.0 Dehydration; E03.9 Hypothyroidism, unspecified; F32.9 Major depressive disorder, single episode, unspecified; Z85.3 Personal history of malignant neoplasm of breast; Z90.13 Acquired absence of bilateral breasts and nipples; E11.22 Type 2 diabetes mellitus with diabetic chronic kidney disease; J45.909 Unspecified asthma, uncomplicated; G47.33 Obstructive sleep apnea (adult) (pediatric); I46.9 Cardiac arrest, cause unspecified; Z92.21 Personal history of antineoplastic chemotherapy; E83.39 Other disorders of phosphorus metabolism; E83.9 Disorder of mineral metabolism, unspecified; I50.810 Right heart failure, unspecified; Z66 Do not resuscitate
CPT/HCPCS: 31500; 36415; 36569; 36600; 71045; 71275; 75940; 76775; 76937; 80048; 80053; 80061; 81001; 81003; 82043; 82607; 82746; 82803; 82962; 83036; 83540; 83605; 83735; 83880; 84100; 84155; 84300; 84436; 84443; 84479; 84484; 85025; 85610; 85730; 87040; 87086; 93005; 93306; 93308; 93458; 93970; 94002; 94640; 94664; 96361; 96374; 96375; 97163; 97530; 99291-25